=== PATIENT | female | born 1990 | race Caucasian/White ===

== ENCOUNTER 2019-06-07 16:45 | Emergency (ER) | payer BC, OTHER, SELFPAY ==
--- NOTE | 2019-06-07 17:40 | CT ---
CT BRAIN NONCONTRAST: DATE: 06/07/2019 HISTORY: 29-year-old female with headache, nausea, and vomiting. FINDINGS: There is no evidence of acute intra-axial or extra-axial hemorrhage. There is no midline shift or any other mass effect. There is no extra-axial fluid collection. There is no evidence of obstructive hydrocephalus. Calvarium is intact. Opacification of left mastoid antrum. Paucity of pneumatized left mastoid air cells. IMPRESSION: No acute intracranial findings.
[2019-06-07] MEDS ORDERED: Magnesium 2 GM/50 ML BAG (IN WATER) ONE (17:58)
[2019-06-07] MEDS ORDERED: diphenhydrAMINE 50 MG/ML VIAL ONE (17:58)
[2019-06-07] MEDS ORDERED: Metoclopramide HCl 10 MG/2 ML VIAL ONE (17:58)
[2019-06-07] MEDS ORDERED: Sodium Chloride 0.9% 100 ML ONE (17:58)
[2019-06-07 17:59] LABS: #Eosinphils 0.2 thou/uL (0.0-0.7); #Lymphocytes 1.5 thou/uL (1.20-3.40); #Monocytes 0.4 thou/uL (0.11-0.59); #Neutrophils 8.6 thou/uL (1.40-6.50); %Basophils 0.4 % (0.0-1.0); %Eosinophils 1.4 % (0.0-10.0); %Lymphocytes 14.1 % (21.0-51.0); %Monocytes 3.8 % (0.0-10.0); %Neutrophils 80.3 % (42.0-75.0); Mean Corpuscular HGB CONC 32.1 g/dL (32.0-36.0); Mean Corpuscular Hemoglobin 26.5 pg (27.0-31.0); Mean Corpuscular Volume 82.7 fL (78.0-98.0); Platelet Count 321 thou/uL (130-400); RBC Distribution Width 12.6 % (11.5-14.5); Red Blood Cell (RBC) Count 4.14 mill/uL (4.20-5.40); White Blood Cell (WBC) Count 10.7 thou/uL (4.8-10.8)
[2019-06-07 18:19] LABS: ALT (SGPT) 24 U/L (8-55); AST (SGOT) 24 U/L (5-34); Albumin 4.1 g/dL (3.5-5.0); Alkaline Phosphatase 115 U/L (40-110); Anion Gap 14 mmol/L (10-20); BUN (Urea Nitrogen) 14 mg/dL (7.0-18.7); Bilirubin, Total 0.3 mg/dL (0.2-1.2); Calc. Creatinine Clearance 0 mL/min (70-130); Calcium 9.8 mg/dL (7.8-10.44); Carbon Dioxide 29 mmol/L (22-29); Chloride 101 mmol/L (98-107); Estimated GFR-MDRD 84; Globulin 3.4 g/dL (2.4-3.5); Glucose 100 mg/dL (70-105); Potassium 4.4 mmol/L (3.5-5.1); Protein, Total 7.5 g/dL (6.0-8.3); Sodium 140 mmol/L (136-145)
[2019-06-07] MEDS ORDERED: Dexamethasone 10 MG/ML VIAL ONE (19:22)
== END 2019-06-07 19:50 | disposition home or self-care (01) ==
LOC: ERS 16:45
DX: R51 Headache (principal); F31.9 Bipolar disorder, unspecified; Z79.899 Other long term (current) drug therapy
CPT/HCPCS: 36415; 70450; 80053; 82570; 84156; 85025; 96365; 96375; J1100; J1200; J2765; J3475; J3490